=== PATIENT | male | born 1995 | race African-American/Black ===

== ENCOUNTER 2021-12-18 11:16 | Emergency (ER) | payer SELFPAY ==
[~2021-12-18] VITALS: Ht 180.3 cm; Wt 83.0 kg
[2021-12-18 11:18] VITALS: BP 123/76
[2021-12-18] MEDS ORDERED: SODIUM CHLORIDE 0.9% 1,000 ML IV ONE (11:45)
[2021-12-18] MEDS ORDERED: ONDANSETRON 4MG ODT PO ONE (11:45)
== END 2021-12-18 12:20 | disposition left against medical advice (07) ==
LOC: ER 11:16
DX: R10.84 Generalized abdominal pain (principal)
CPT/HCPCS: 93005; 99283; J7030